=== PATIENT | female | born 1965 | race Caucasian/White ===

== ENCOUNTER 2017-10-17 23:39 | Inpatient (IN) | payer MEDICARE, OTHER ==
[~2017-10-17] VITALS: Ht 165.1 cm; Wt 83.9 kg
--- NOTE | 2017-10-18 00:10 | NUR ---
ADMISSION NOTES ADMITTED THIS 52 Y/O FEMALE PATIENT FROM [facility] . PT IS ON 5150 HOLD FOR DTS. PER HOLD PT TOOK AN OVERDOSE OF A COMBINATION OF LIQUID LAUNDRY DETERGENT AND UNKNOWN QUANTITY OF PILLS. PT TOLD ER STAFF THAT "MAYBE" SHE THOUGHT OF KILLING HERSELF. PT TOLD MEDICAL STAFF "IT WAS JUST A MISTAKE, I DIDN'T MEAN IT". PT HAS PREVIOUS PSYCHIATRIC HOSPITALIZATIONS. UPON FACE TO FACE ASSESSMENT PATIENT IS A&O X3, PARANOID, SUSPICIOUS, ANXIOUS. ADMITTING PSYCH DX OF SCHIZOPRENIA. MEDICAL DX OF HYPERLIPIDEMIA, HYPOTHYROIDISM. NO SOB, RESPIRATION EVEN AND UNLABORED, V/S WNL, NO ACUTE DISTRESS NOTED. MD AWARE AND NOTIFIED OF THE ADMISSION. SKIN ASSESSMENT DONE. PICTURES TAKEN. ORIENT TO UNIT POLICY. ALL NEEDS ATTENDED AND ANTICIPATED. KEPT CLEAN AND DRY AT ALL TIMES. WILL CONTINUE TO MONITOR FOR Q15 MINS FOR SAFETY AND BEHAVIOR.
[2017-10-18] MEDS ORDERED: MAG HYDROX/AL HYDROX/SIMETH 30 ML UDC PO PRN (00:30)
[2017-10-18] MEDS ORDERED: LORAZEPAM 0.5 MG TABLET PO PRN (00:30)
[2017-10-18] MEDS ORDERED: TEMAZEPAM 7.5 MG CAPSULE PO PRN (00:30)
[2017-10-18] MEDS ORDERED: OLAN10TA3 PO (00:46)
[2017-10-18] MEDS ORDERED: LEVO50TA8 PO (00:46)
[2017-10-18] MEDS ORDERED: LOVA40TA2 PO (00:46)
[2017-10-18] MEDS ORDERED: PRAZ2CAP2 PO (00:46)
[2017-10-18] MEDS ORDERED: ATOR10TA PO (00:46)
[2017-10-18] MEDS ORDERED: TRIH2TAB3 PO (00:46)
[2017-10-18] MEDS ORDERED: ESCI20TA PO (00:46)
[2017-10-18] MEDS ORDERED: TRAZ-214 PO (00:46)
[2017-10-18 01:39] VITALS: BP 131/71
[2017-10-18 08:00] VITALS: BP 105/59
[2017-10-18] MEDS ORDERED: ATORVASTATIN 10 MG TABLET PO SCH ×2 (09:00→09:18)
[2017-10-18] MEDS: LEVOTHYROXINE SODIUM 50 MCG TABLET PO SCH (09:16)
[2017-10-18 15:53] VITALS: BP 115/53
[2017-10-18] MEDS: TRIHEXYPHENIDYL HCL 2 MG TABLET PO SCH (16:30)
[2017-10-18] MEDS: risperiDONE 1 MG TABLET PO SCH (16:31)
[2017-10-18 20:00] VITALS: BP 118/68
[2017-10-18] MEDS: PRAZOSIN HCL 1 MG CAPSULE PO SCH (21:28)
[2017-10-18] MEDS: ATORVASTATIN 10 MG TABLET PO SCH (21:29)
[2017-10-19 07:15] LABS: BASOPHILS # (AUTO) 0.1 /CMM (0.0-0.2); BASOPHILS % (AUTO) 0.7 % (0.0-2.0); HEMATOCRIT 33 % (33-45); HEMOGLOBIN 11.4 g/dL (11.5-14.8); LYMPHOCYTES # (AUTO) 1.6 /CMM (0.8-4.8); LYMPHOCYTES % (AUTO) 23.1 % (20.0-44.0); MEAN CORPUSCULAR HGB CONC 34 g/dl (31.0-36.0); MEAN CORPUSCULAR VOLUME 93 fL (82-100); MONOCYTES # (AUTO) 0.7 /CMM (0.1-1.30); MONOCYTES % (AUTO) 10.3 % (2.0-12.0); NEUTROPHILS # (AUTO) 4.3 /CMM (1.8-8.9); NEUTROPHILS % (AUTO) 62.9 % (43.0-81.0); PLATELET COUNT (AUTO) 290 /CMM (150-450); RDW COEFFICIENT OF VARIATION 12.1 (11.5-15.0); RED BLOOD CELL COUNT(AUTO) 3.59 MIL/uL (4.0-5.2); WHITE BLOOD COUNT (AUTO) 6.9 K/uL (4.3-11.0)
[2017-10-19 07:42] LABS: ALBUMIN 2.8 g/dL (3.4-5.0); BILIRUBIN,TOTAL 0.6 mg/dL (0.2-1.0); CALCIUM, SERUM 8.7 mg/dL (8.5-10.1); CREATININE 1.3 mg/dL (0.6-1.3); POTASSIUM 3.5 mmol/L (3.5-5.1)
[2017-10-19 07:45] LABS: CHOLESTEROL 171 mg/dL (<200); HDL CHOLESTEROL 44 mg/dL (40-60); LDL 103 mg/dL (0-99); TRIGLYCERIDES 120 mg/dL (30-150)
[2017-10-19 08:00] VITALS: BP 119/62
[2017-10-19] MEDS: LEVOTHYROXINE SODIUM 50 MCG TABLET PO SCH (08:33)
[2017-10-19] MEDS: TRIHEXYPHENIDYL HCL 2 MG TABLET PO SCH ×2 (08:34→16:16)
[2017-10-19] MEDS: risperiDONE 1 MG TABLET PO SCH ×2 (08:34→16:16)
[2017-10-19] MEDS: MAGNESIUM HYDROXIDE 30 ML UDC PO PRN (09:00)
[2017-10-19 16:00] VITALS: BP 109/65
[2017-10-19 20:19] VITALS: BP 99/66
[2017-10-19] MEDS: ATORVASTATIN 10 MG TABLET PO SCH (21:22)
[2017-10-19] MEDS: PRAZOSIN HCL 1 MG CAPSULE PO SCH (21:22)
[2017-10-20 08:00] VITALS: BP 116/73
[2017-10-20] MEDS: TRIHEXYPHENIDYL HCL 2 MG TABLET PO SCH ×2 (08:08→16:36)
[2017-10-20] MEDS: risperiDONE 1 MG TABLET PO SCH ×2 (08:08→16:36)
[2017-10-20] MEDS: LEVOTHYROXINE SODIUM 50 MCG TABLET PO SCH (08:09)
--- NOTE | 2017-10-20 11:13 | NUR ---
GPS RN NOTE; PATIENT IN THE ROOM NO S/S DISTRESS NOTED , PT AMBULATORY SELF CARE, COMPLIANT WITH MEDICATIONS NO C/O PAIN OR DISCOMFORT. PATIENT DENIES SI/HI DENIES BEEN DEPRESSED PT STATED' IM READY TO GO HOME" WILL CONTINUE MONITORING FOR SAFETY AND BEHAVIOR Q 15 MIN
--- NOTE | 2017-10-20 15:14 | NUR ---
Initial discharge note: Pt lives home alone at the following address: [address] [place] [address].Phone number [phone]. Patient would like to return home upon discharge. Pt reported that friend Kaleb [phone] would assist her transportation back home from hospital. SW will confirm with Kaleb. SW spoke to patients sister Debra Glaser [phone] who confirmed patient can return home upon discharge.reforestation worker will help form a safe and proper discharge with pt and support system.
[2017-10-20 16:00] VITALS: BP 100/56
--- NOTE | 2017-10-20 19:31 | NUR ---
GPS RN NOTE, RECEIVED PATIENT AWAKE AND IN BED, NO S/S OR COMPLAINTS OF PAIN AT THIS TIME. PATIENT IS DISPLAYING NO S/S OF APPARENT DISTRESS AT THIS TIME. PATIENT BREATHING IS UNLABORED WITH EQUAL RISE AND FALL OF THE CHEST. PATIENT IS ALERT AND ORIENTED X 3 ON ROOM AIR WITH A SPO2 OF 93%. PATIENT IS COMPLIANT WITH MEDICATION, ANXIOUS AT TIMES, DEMANDING, NEEDY, COOPERATIVE AT TIMES, AND NEEDS REORIENTATION. PATIENT DENIES SUICIDE IDEATIONS AND HOMICIDAL IDEATIONS AT THIS TIME. PATIENT ASSISTED WITH TURNING AND REPOSITIONING Q2HR AND PRN FOR COMFORT AND CIRCULATION. PATIENT HAS NO NEEDS AT THIS TIME. PATIENT EDUCATED ON THE USE OF THE CALL SCHAEFER. PATIENT SIDE RAILS ARE UP X 2, BED IS LOCKED AND LOW, AND I WILL CONTINUE TO MONITOR THIS PATIENT Q 15 MIN WITH THE HELP OF STAFF.
[2017-10-20 19:50] VITALS: BP 111/74
[2017-10-20] MEDS: PRAZOSIN HCL 1 MG CAPSULE PO SCH (21:49)
[2017-10-20] MEDS: ATORVASTATIN 10 MG TABLET PO SCH (21:49)
[2017-10-21] MEDS: TEMAZEPAM 7.5 MG CAPSULE PO PRN ×2 (01:22→23:06)
--- NOTE | 2017-10-21 01:22 | NUR ---
GPS RN NOTE, PATIENT HAS A COMPLAINT OF NOT BEING ABLE TO SLEEP AND IS REQUESTING RESTORIL AT THIS TIME. PATIENT VITAL SIGNS ARE STABLE. GAVE RESTORIL 7.5MG PO HS ORDERED. WILL REASSESS FOR INSOMNIA AND I WILL CONTINUE TO MONITOR THIS PATIENT.
[2017-10-21] MEDS: LEVOTHYROXINE SODIUM 50 MCG TABLET PO SCH (07:45)
[2017-10-21 08:00] VITALS: BP 118/55
[2017-10-21] MEDS: TRIHEXYPHENIDYL HCL 2 MG TABLET PO SCH ×2 (08:07→16:57)
[2017-10-21] MEDS: risperiDONE 1 MG TABLET PO SCH ×2 (08:07→16:57)
--- NOTE | 2017-10-21 10:17 | NUR ---
WOUND CARE CONSULT WOUND CARE RECEIVED CONSULT FOR WOUND. WOUND CARE WILL DEFER CONSULT AND ALL TREATMENT PLANS TO SURGICAL TEAM AT THIS TIME THEY ARE CURRENTLY FOLLOWING. PATIENT WITH CARLA AT 22.
[2017-10-21 15:48] LABS: BASOPHILS % (AUTO) 0.6 % (0.0-2.0); EOSINOPHILS % (AUTO) 2.3 % (0.0-6.0); HEMATOCRIT 33 % (33-45); HEMOGLOBIN 11.3 g/dL (11.5-14.8); LYMPHOCYTES # (AUTO) 1.4 /CMM (0.8-4.8); LYMPHOCYTES % (AUTO) 20.1 % (20.0-44.0); MEAN CORPUSCULAR HGB CONC 34 g/dl (31.0-36.0); MEAN CORPUSCULAR VOLUME 93 fL (82-100); MONOCYTES # (AUTO) 0.7 /CMM (0.1-1.30); MONOCYTES % (AUTO) 10.2 % (2.0-12.0); NEUTROPHILS # (AUTO) 4.6 /CMM (1.8-8.9); NEUTROPHILS % (AUTO) 66.8 % (43.0-81.0); PLATELET COUNT (AUTO) 293 /CMM (150-450); RDW COEFFICIENT OF VARIATION 12.3 (11.5-15.0); RED BLOOD CELL COUNT(AUTO) 3.57 MIL/uL (4.0-5.2); WHITE BLOOD COUNT (AUTO) 6.9 K/uL (4.3-11.0)
[2017-10-21 15:59] LABS: CALCIUM, SERUM 8.9 mg/dL (8.5-10.1); CREATININE 1.3 mg/dL (0.6-1.3); POTASSIUM 3.7 mmol/L (3.5-5.1)
[2017-10-21 16:03] VITALS: BP 111/53
[2017-10-21 16:05] LABS: ALBUMIN 3.1 g/dL (3.4-5.0); BILIRUBIN,TOTAL 0.3 mg/dL (0.2-1.0); TOTAL PROTEIN, SERUM 6.3 g/dL (6.4-8.2)
--- NOTE | 2017-10-21 16:43 | NUR ---
[id number]: NOTIFIED COAL HANDLING SUPERVISOR REGINA DAVIS ABOUT LAB RESULTS: RBC= 3.57, HGB= 11.3, BUN= 22, AST= 54, ALT= 93, TOTAL PROTEIN= 6.3, ALBUMIN= 3.1. NO NEW ORDERS GIVEN AT THIS TIME.
[2017-10-21 21:09] VITALS: BP 97/56
[2017-10-21] MEDS: ATORVASTATIN 10 MG TABLET PO SCH (21:14)
[2017-10-21] MEDS: PRAZOSIN HCL 1 MG CAPSULE PO SCH (21:14)
[2017-10-21] MEDS: ACETAMINOPHEN 325 MG TABLET PO PRN (22:16)
[2017-10-22 08:00] VITALS: BP 111/58
[2017-10-22] MEDS: risperiDONE 1 MG TABLET PO SCH ×2 (08:29→16:43)
[2017-10-22] MEDS: LEVOTHYROXINE SODIUM 50 MCG TABLET PO SCH (08:29)
[2017-10-22] MEDS: TRIHEXYPHENIDYL HCL 2 MG TABLET PO SCH ×2 (08:29→16:43)
--- NOTE | 2017-10-22 14:10 | NUR ---
SANDIE contacted Kaleb at to inform him that patient will be discharged on 10/24/17. Kaleb confirmed that he will be picking up client via private vehicle at 1:00pm.
--- NOTE | 2017-10-22 14:15 | NUR ---
SANDIE spoke to patients sister Debra Glaser [phone] to inform her that client will be discharged on 10/24/17 and that Kaleb [phone] confirmed patients apple picker at 1:00pm.
--- NOTE | 2017-10-22 15:26 | NUR ---
SANDIE called [facility] [address] [place], [address] to confirm patients scheduled appointment with Psychiatrist Dr. Shirley Franks [phone]. Appointment was confirmed for 11/04/17 at 10:00am. SANDIE also spoke with [facility]'s rn social work Denilson Conner [phone] to discuss day program options. Denilson Chavis stated that she would discuss day programs with patient and refer upon patients commitment to attend. SANDIE scheduled appointment with Denilson Chavis for 10/27/17 at 9:30am. Client was informed of scheduled appointments and confirmed appointment time and dates.
[2017-10-22 16:00] VITALS: BP 104/52
[2017-10-22 20:24] VITALS: BP 126/87
[2017-10-22] MEDS: PRAZOSIN HCL 1 MG CAPSULE PO SCH (21:22)
[2017-10-22] MEDS: ATORVASTATIN 10 MG TABLET PO SCH (21:23)
[2017-10-22] MEDS: TEMAZEPAM 7.5 MG CAPSULE PO PRN (21:42)
--- NOTE | 2017-10-22 21:42 | NUR ---
RN GPS NOTES PT. C/O INSOMNIA RESTORIL 7.5 MG PO PRN GIVEN PER PT. REQUEST.
[2017-10-23] MEDS: ACETAMINOPHEN 325 MG TABLET PO PRN ×2 (03:59→23:02)
--- NOTE | 2017-10-23 03:59 | NUR ---
GPS RN NOTE, PATIENT HAS A COMPLAINT OF LOWER BACK PAIN AT 3 OUT 10 ON THE PAIN SCALE AND IS REQUESTING TYLENOL AT THIS TIME. PATIENT VITAL SIGNS ARE STABLE. GAVE TYLENOL 650MG PO Q6HR PRN ORDERED. WILL REASSESS FOR PAIN AND I WILL CONTINUE TO MONITOR THIS PATIENT.
[2017-10-23 08:00] VITALS: BP 100/52
[2017-10-23] MEDS: TRIHEXYPHENIDYL HCL 2 MG TABLET PO SCH ×2 (08:23→16:47)
[2017-10-23] MEDS: LEVOTHYROXINE SODIUM 50 MCG TABLET PO SCH (08:23)
[2017-10-23 16:19] VITALS: BP 101/53
[2017-10-23 20:00] VITALS: BP 108/66
[2017-10-23] MEDS: TEMAZEPAM 7.5 MG CAPSULE PO PRN (20:56)
--- NOTE | 2017-10-23 21:05 | NUR ---
TEMAZEPAM 7.5 MG CAP 1 PO GIVEN FOR SLEEP.
[2017-10-23] MEDS: ATORVASTATIN 10 MG TABLET PO SCH (21:11)
[2017-10-23] MEDS: PRAZOSIN HCL 1 MG CAPSULE PO SCH (21:12)
[2017-10-23] MEDS ORDERED: risperiDONE 1 MG TABLET PO SCH (22:00)
--- NOTE | 2017-10-23 23:04 | NUR ---
C/O BACK PAIN, 3/10 ON PAIN SCALE, TYLENOL 650 MG TAB PO GIVEN.
[2017-10-24 08:39] VITALS: BP 112/58
[2017-10-24] MEDS: LEVOTHYROXINE SODIUM 50 MCG TABLET PO SCH (09:01)
[2017-10-24] MEDS: TRIHEXYPHENIDYL HCL 2 MG TABLET PO SCH (09:01)
[2017-10-24] MEDS: MAGNESIUM HYDROXIDE 30 ML UDC PO PRN (10:33)
--- NOTE | 2017-10-24 10:33 | NUR ---
[id number]: GAVE MILK OF MAGNESIA OF 30 ML PO DUE TO CONSTIPATION UPON PT REQUEST AND ILL CONTINUE TO MONITOR FOR EFFECTIVENESS OF MEDICATION
--- NOTE | 2017-10-24 12:08 | NUR ---
Discharge note: Patient will be discharged home to [address] [place] [address] at 1:00pm and being picked up by Sister Abeba via private vehicle [phone]. Patient has two scheduled appointments at [facility] [address] [place], [address] Shirley Franks [phone] on 11/04/17 at 10:00am and with Clinic's health care social worker Denilson Conner [phone] for 10/27/17 at 9:30am to discuss day program options. Patients capacity planner is Dr. Juancho Sharma [address] [place], [place] [id number] . Patient's mood was fair patient was anxious and concerned to be discharged exactly at 1:00pm because her sister had to picked up her children from school. Patient denied suicidal/homicidal ideations. SANDIE faxed home health referral per doctors request to Funmi at [facility]. SANDIE Facilitated info to IDT team who are in agreement with discharge arrangement. The multidisciplinary exitcare form was done, printed, signed, and given to the patient.
--- NOTE | 2017-10-24 13:15 | NUR ---
[id number]: PT IS 52 YEARS OLD FEMALE DISCHARGE TO HOME LOCATED AT [address] [place] [address]. [address] [place]. [address] IN STABLE CONDITION. PT IS ALERT AND ORIENTED X3. COMPLAINT WITH MEDICATIONS, COOPERATIVE WITH TREATMENT DEVELOPING SI/HI. BEHAVIOR IMPROVED, PSYCHIATRIC TX PLANS MET, MEDICAL TX PLANS DEFERRED FOR CONTINUAL MONITORING. EDUCATED PT ABOUT AFTER CARE PLAN AND COPY PROVIDED. RETURNED PERSONAL BELONGINGS TO PT. MEDICATIONS RECONCILED DR. LAMAS AND FAMILY LAWYER REGINA DAVIS. PT SIGNED DISCHARGE PAPERWORK. SKIN ASSESSMENT DONE. CALLED AND FAXED MEDICATIONS TO [facility] [address] [facility]. [id number] AND FAXED NUMBER IS . PICKED UP BY CORINNA REGALADO LEFT VIA PRIVATE CAR.
--- NOTE | 2017-11-06 15:25 | NUR ---
SANDIE faxed discharge psych progress note to Rose from [facility] fax: [phone].
== END 2017-10-24 13:15 | disposition home health service (06) | DRG 885 ==
LOC: GPS 23:39 → EDBD 23:39 → GPS 10-20 12:57
PROVIDERS: ADMIT Psychiatry & Neurology Psychosomatic Medicine; ATTEND Nurse Practitioner Acute Care
DX: F25.0 Schizoaffective disorder, bipolar type (principal); E44.0 Moderate protein-calorie malnutrition; R74.0 Nonspecific elevation of levels of transaminase and lactic acid dehydrogenase [LDH]; E88.09 Other disorders of plasma-protein metabolism, not elsewhere classified; E03.9 Hypothyroidism, unspecified; D63.8 Anemia in other chronic diseases classified elsewhere; T14.8XXA Other injury of unspecified body region, initial encounter; D17.22 Benign lipomatous neoplasm of skin and subcutaneous tissue of left arm; E78.5 Hyperlipidemia, unspecified; F17.210 Nicotine dependence, cigarettes, uncomplicated; F31.9 Bipolar disorder, unspecified; R21 Rash and other nonspecific skin eruption; X58.XXXA Exposure to other specified factors, initial encounter; Y93.9 Activity, unspecified; Y92.009 Unspecified place in unspecified non-institutional (private) residence as the place of occurrence of the external cause; F19.10 Other psychoactive substance abuse, uncomplicated; Z72.89 Other problems related to lifestyle; Z68.30 Body mass index [BMI] 30.0-30.9, adult; Z91.5 Personal history of self-harm
CPT/HCPCS: 36415; 80053-TC; 80061-TC; 85025-TC; 87081-TC